=== PATIENT | male | born 1970 | race Caucasian/White ===

== ENCOUNTER 2018-12-13 00:48 | Inpatient (IN) | payer BC ==
[~2018-12-13] VITALS: Ht 177.8 cm; Wt 93.0 kg
[2018-12-13] VITALS (8 sets, daily range): BP systolic 109–154; BP diastolic 65–92
[2018-12-13] MEDS ORDERED: ASPIRIN-LOW81 MG ORAL (01:06)
[2018-12-13] MEDS ORDERED: CRESTOR10 M1 ORAL (01:06)
[2018-12-13] MEDS ORDERED: SYNTHROID200 MCG ORAL (01:06)
[2018-12-13] MEDS ORDERED: dilTIAZem HCl 25mg/5ml Inj IVP ONE ×2 (01:15→02:30)
--- NOTE | 2018-12-13 01:15 | Emergency Room Report ---
History of Present Illness General Chief Complaint: General Complaint Source: Patient Present Illness HPI Patient presents with complaints of palpitation sensation that started approximately 1030 this evening patient reports drinking a tall Cold glass of water soon after which he began feeling the palpitation sensation patient had very similar Event in September when he went to [facility] had fairly extensive cardiac work- up was found to have atrial fibrillation Patient was on metoprolol for about 1 month after that And since then has had a stress test and further evaluation and was taken off the medication Denies any chest pain he does feel the palpitation sensation denies any vomiting or diarrhea denies any other trauma denies any intake of any energy drinks Allergies: Coded Allergies: No Known Allergies (Unverified , 12/13/18) Patient History Past Medical History: see triage record Pertinent Family History: none Reviewed Nursing Documentation: PMH: Agreed; PSxH: Agreed Nursing Documentation-PMH Past Medical History: No History, Except For Hx Cardiac Problems: Yes - afib, hcl, hypothroidism Review of Systems All Other Systems: negative except mentioned in HPI Physical Exam Vital Signs Date Time Temp Pulse Resp B/P (MAP) Pulse Ox O2 Delivery O2 Flow Rate FiO2 12/13/18 00:53 98.1 107 18 138/91 (107) 94 Room Air Sp02 EP Interpretation: reviewed, normal General Appearance: well appearing, no apparent distress Head: normocephalic, atraumatic Eyes: bilateral eye PERRL, bilateral eye EOMI ENT: hearing grossly normal, normal pharynx, TMs + canals normal, uvula midline Neck: full range of motion, supple, no meningismus, no bony tend Respiratory: lungs clear, normal breath sounds, no rhonchi, no respiratory distress, no retraction, no accessory muscle use Cardiovascular #1: normal peripheral pulses, no edema, no gallop, no JVD, no murmur, tachycardia, irregularly irregular Gastrointestinal: normal bowel sounds, non tender, soft, no mass, no organomegaly, non-distended, no guarding, no hernia, no pulsatile mass, no rebound Genitourinary: no CVA tenderness Musculoskeletal: normal inspection Neurologic: oriented x3, responsive, skein winder III-XII nml as tested, motor strength/ tone normal, sensory intact Psychiatric: mood/affect normal Skin: normal color, no rash, warm/dry, palpation normal Lymphatic: normal inspection, no adenopathy Procedures Critical Care Time Critical Care Time 50 minutes for multiple re-evaluations initial critical presentation concerning findings with cardiac pathology concerning for cardiac arrhythmia and possible not including any procedural time Medical Decision Making Diagnostic Impression: Primary Impression: Atrial fibrillation with RVR ER Course Patient is a fairly complex patient with multiple differential to consideration including but not limited to cardiac cardiopulmonary and vascular emergencies Patient appears to have had fairly extensive testing recently for this nevertheless initially trialed on Cardizem Patient also placed on a drip heart rate did improve significantly however remains irregular Anticoagulation was also initiated Consideration and discussion regarding cardioversions may need to however given the patient's improving heart rate And question of previous atrial fibrillation this is deferred for further inpatient care Labs Test 12/13/18 01:15 12/13/18 01:55 White Blood Count 9.9 K/UL (4.8-10.8) Red Blood Count 5.55 M/UL (4.70-6.10) Hemoglobin 17.2 G/DL (14.2-18.0) Hematocrit 49.6 % (42.0-52.0) Mean Corpuscular Volume 89 FL (80-99) Mean Corpuscular Hemoglobin 31.0 PG (27.0-31.0) Mean Corpuscular Hemoglobin Concent 34.7 G/DL (32.0-36.0) Red Cell Distribution Width 11.1 % (11.6-14.8) Platelet Count 251 K/UL (150-450) Mean Platelet Volume 6.2 FL (6.5-10.1) Neutrophils (%) (Auto) 43.0 % (45.0-75.0) Lymphocytes (%) (Auto) 45.5 % (20.0-45.0) Monocytes (%) (Auto) 8.2 % (1.0-10.0) Eosinophils (%) (Auto) 2.0 % (0.0-3.0) Basophils (%) (Auto) 1.4 % (0.0-2.0) Prothrombin Time 9.6 SEC (9.30-11.50) Prothromb Time International Ratio 0.9 (0.9-1.1) Activated Partial Thromboplast Time 25 SEC (23-33) Sodium Level 148 MMOL/L (136-145) Potassium Level 4.0 MMOL/L (3.5-5.1) Chloride Level 107 MMOL/L (98-107) Carbon Dioxide Level 32 MMOL/L (21-32) Anion Gap 9 mmol/L (5-15) Blood Urea Nitrogen 17 mg/dL (7-18) Creatinine 1.1 MG/DL (0.55-1.30) Estimat Glomerular Filtration Rate > 60 mL/min (>60) Glucose Level 112 MG/DL (74-106) Calcium Level 9.6 MG/DL (8.5-10.1) Total Bilirubin 0.2 MG/DL (0.2-1.0) Aspartate Amino Transf (AST/SGOT) 26 U/L (15-37) Alanine Aminotransferase (ALT/SGPT) 63 U/L (12-78) Alkaline Phosphatase 75 U/L (46-116) Total Creatine Kinase 97 U/L (26-308) Creatine Kinase MB 1.3 NG/ML (0.0-3.6) Creatine Kinase MB Relative Index 1.3 Troponin I 0.000 ng/mL (0.000-0.056) Pro-B-Type Natriuretic Peptide 11 pg/mL (0-125) Total Protein 7.6 G/DL (6.4-8.2) Albumin 4.0 G/DL (3.4-5.0) Globulin 3.6 g/dL Albumin/Globulin Ratio 1.1 (1.0-2.7) Urine Opiates Screen Negative (NEGATIVE) Urine Barbiturates Screen Negative (NEGATIVE) Phencyclidine (PCP) Screen Negative (NEGATIVE) Urine Amphetamines Screen Negative (NEGATIVE) Urine Benzodiazepines Screen Negative (NEGATIVE) Urine Cocaine Screen Negative (NEGATIVE) Urine Marijuana (THC) Screen Negative (NEGATIVE) EKG Diagnostic Results Rate: tachycardiac Rhythm: other ST Segments: other - AFib RVR Rhythm Strip Diag. Results EP Interpretation: yes Rate: 80 Rhythm: no PVC's, no ectopy, other - Irregularly irregular Chest X-Ray Diagnostic Results Chest X-Ray Diagnostic Results : Chest X-Ray Ordered: Yes # of Views/Limited/Complete: 1 View Indication: Chest Pain EP Interpretation: Yes Interpretation: no consolidation, no effusion, no pneumothorax Impression: No acute disease - Nonspecific elevated left hemidiaphragm Electronically Signed by: Jessica Young DO Last Vital Signs Date Time Temp Pulse Resp B/P (MAP) Pulse Ox O2 Delivery O2 Flow Rate FiO2 12/13/18 00:53 98.1 107 18 138/91 (638) 94 Room Air Status: improved Disposition: ADMITTED INPATIENT Condition: Serious Jessica Young DO Dec 13, 2018 01:15
[2018-12-13 01:27] LABS: BASOPHILS % (AUTO) 1.4 % (0.0-2.0); HEMATOCRIT 49.6 % (42.0-52.0); HEMOGLOBIN 17.2 G/DL (14.2-18.0); LYMPHOCYTES % (AUTO) 45.5 % (20.0-45.0); MEAN CORPUSCULAR VOLUME 89 FL (80-99); MONOCYTES % (AUTO) 8.2 % (1.0-10.0); PLATELET COUNT 251 K/UL (150-450); RED BLOOD COUNT 5.55 M/UL (4.70-6.10); RED CELL DISTRIBUTION WIDTH 11.1 % (11.6-14.8); WHITE BLOOD COUNT 9.9 K/UL (4.8-10.8)
--- NOTE | 2018-12-13 01:36 | NUR ---
ED Nurse Note: Patient walked in to ER due to palpitation since 0. Patient's HR upon arrival 167, nonlabored breathing, O2 sat 98 % on RA. AAO x4, oter VSS at this time, will continue to monitor.
[2018-12-13 01:43] LABS: INR 0.9 (0.9-1.1)
[2018-12-13 01:52] LABS: ANION GAP 9 mmol/L (5-15); BLOOD UREA NITROGEN 17 mg/dL (7-18); CALCIUM 9.6 MG/DL (8.5-10.1); CARBON DIOXIDE 32 MMOL/L (21-32); CHLORIDE 107 MMOL/L (98-107); CREATININE 1.1 MG/DL (0.55-1.30); SODIUM 148 MMOL/L (136-145)
--- NOTE | 2018-12-13 01:58 | NUR ---
ED Nurse Note: Started Diltiazem drip at 5 mL/hr per Hector Castillo order.
[2018-12-13] MEDS ORDERED: Metoprolol Succinate XL 50mg tab ORAL ONE (02:00)
--- NOTE | 2018-12-13 02:00 | NUR ---
ED Nurse Note: Increased Diltiazem to 7mL/hr, per DR. Young order.
[2018-12-13] MEDS ORDERED: Metoprolol Tartrate 50mg tab ONE (02:03)
[2018-12-13 02:06] LABS: ALANINE AMINOTRANSFERASE 63 U/L (12-78); ALBUMIN/GLOBULIN RATIO 1.1 (1.0-2.7); ALKALINE PHOSPHATASE 75 U/L (46-116); ASPARTATE AMINO TRANSFERASE 26 U/L (15-37); BILIRUBIN,TOTAL 0.2 MG/DL (0.2-1.0); CKMB 1.3 NG/ML (0.0-3.6); CREATINE KINASE 97 U/L (26-308)
--- NOTE | 2018-12-13 02:12 | NUR ---
Metoprolol 50mg would not show in [facility] and was not able to scan, however, was able to override and administer.
--- NOTE | 2018-12-13 02:31 | Diagnostic Imaging Report ---
EXAM: XR Chest, 1 View CLINICAL HISTORY: CP TECHNIQUE: Frontal view of the chest. COMPARISON: No relevant prior studies available. FINDINGS: Lungs: No consolidation or mass. Pleural space: No acute findings Heart: No cardiomegaly. Mediastinum: Unremarkable. Bones/joints: No acute findings. IMPRESSION: No acute cardiopulmonary process.
--- NOTE | 2018-12-13 02:41 | NUR ---
ED Nurse Note: Resume Diltiazem drip at 10mL/hr per Hector CABALLERO order.
[2018-12-13] MEDS ORDERED: Enoxaparin 100mg Inj SUBQ ONE (03:00)
--- NOTE | 2018-12-13 03:30 | NUR ---
ED Nurse Note: Patient was admited to [facility] due to Afib. Patient was transfered up with Diltiazem drip at rate 10mL/hr. Patient's HR is 82. Patient was transfered via gurney by ACLS protocol, with all belongings.
--- NOTE | 2018-12-13 03:30 | NUR ---
NURSE NOTES: Patient arrived via gurney from the ED. Report received from [facility] Pool. Patient is able to walk into bed steadily. monitor worker in place, linens and gown was changed. Belongings accounted for at bedside. Patient states no distress or pain. On room air O2 saturating at 98%. Vital signs stable. Will initiate plan of care.
--- NOTE | 2018-12-13 04:03 | NUR ---
NURSE NOTES: Received admission orders from Dr. Esquivel.
--- NOTE | 2018-12-13 07:28 | NUR ---
NURSE NOTES: Received report from [facility] Ly. Pt. Patient is resting in bed, in stable condition. Alert and oriented x4. No sign of acute distress at this time. Cardizem drip is running at RX dose. Bed in low position, with two side rails up, brake engaged. Call light and bed side table within reach. Will continue to monitor.
--- NOTE | 2018-12-13 07:28 | NUR ---
HAND-OFF: Report given to LB Davenport.
[2018-12-13] MEDS ORDERED: Aspirin EC 81mg tab ORAL SCH (09:00)
--- NOTE | 2018-12-13 09:00 | NUR ---
NURSE NOTES: Called and paged Dr. Esquivel for asking about patient medication and Tyrone baron
--- NOTE | 2018-12-13 10:00 | NUR ---
NURSE NOTES: Paged Dr. Esquivel for the second time.
--- NOTE | 2018-12-13 11:31 | NUR ---
CASE MANAGEMENT: INITIAL REVIEW 48 YO M PRESENTED TO OUR ED FROM HOME CC: "[facility]" PMHx: A FIB. HYPOTHYROIDISM. HLD. SI:A FIB W/ RVR T 98.1 HR 107 RR 18 B/P 138/91 SATS 94% ON RA NA 148 GLU 112 IS: NS BOLUS X1 CARDIZEM IV X2 PATIENT ADMITTED TO TELE 12/13/2018 @ 0150 DCP: PATIENT TO BE DISCHARGED TO HOME ONCE MEDICALLY CLEARED. PLAN OF CARE: CARDIO EVAL Addendum: 12/13/18 at 1748 by Ling Lofton CM INTERQUAL MET
--- NOTE | 2018-12-13 11:43 | Cardiac Electrophysiology PN ---
Subjective Subjective [id number] Objective Last 24 Hour Vital Signs Date Time Temp Pulse Resp B/P (MAP) Pulse Ox O2 Delivery O2 Flow Rate FiO2 12/13/18 09:00 Room Air 12/13/18 08:00 98.3 50 20 109/65 (80) 96 12/13/18 08:00 43 12/13/18 03:50 87 12/13/18 03:30 Room Air 12/13/18 03:30 97.7 84 20 124/79 (94) 98 12/13/18 03:30 98.1 89 19 112/65 98 Room Air 12/13/18 02:42 98.1 89 19 112/65 98 Room Air 12/13/18 02:30 115 111/63 12/13/18 02:13 98.1 156 22 115/92 98 Room Air 12/13/18 02:11 106 117/92 12/13/18 01:58 98.1 167 22 135/83 98 Room Air 12/13/18 01:43 109 135/83 12/13/18 01:32 167 22 Room Air 12/13/18 01:32 98.1 167 22 133/83 98 Room Air 12/13/18 01:21 140 133/83 12/13/18 00:53 98.1 107 18 138/91 (107) 94 Room Air Intake and Output 12/12/18 12/13/18 19:00 07:00 # Voids 2 Laboratory Tests Test 12/13/18 01:15 12/13/18 01:55 White Blood Count 9.9 K/UL (4.8-10.8) Red Blood Count 5.55 M/UL (4.70-6.10) Hemoglobin 17.2 G/DL (14.2-18.0) Hematocrit 49.6 % (42.0-52.0) Mean Corpuscular Volume 89 FL (80-99) Mean Corpuscular Hemoglobin 31.0 PG (27.0-31.0) Mean Corpuscular Hemoglobin Concent 34.7 G/DL (32.0-36.0) Red Cell Distribution Width 11.1 % (11.6-14.8) L Platelet Count 251 K/UL (150-450) Mean Platelet Volume 6.2 FL (6.5-10.1) L Neutrophils (%) (Auto) 43.0 % (45.0-75.0) L Lymphocytes (%) (Auto) 45.5 % (20.0-45.0) H Monocytes (%) (Auto) 8.2 % (1.0-10.0) Eosinophils (%) (Auto) 2.0 % (0.0-3.0) Basophils (%) (Auto) 1.4 % (0.0-2.0) Prothrombin Time 9.6 SEC (9.30-11.50) Prothromb Time International Ratio 0.9 (0.9-1.1) Activated Partial Thromboplast Time 25 SEC (23-33) Sodium Level 148 MMOL/L (136-145) H Potassium Level 4.0 MMOL/L (3.5-5.1) Chloride Level 107 MMOL/L (98-107) Carbon Dioxide Level 32 MMOL/L (21-32) Anion Gap 9 mmol/L (5-15) Blood Urea Nitrogen 17 mg/dL (7-18) Creatinine 1.1 MG/DL (0.55-1.30) Estimat Glomerular Filtration Rate > 60 mL/min (>60) Glucose Level 112 MG/DL (74-106) H Calcium Level 9.6 MG/DL (8.5-10.1) Total Bilirubin 0.2 MG/DL (0.2-1.0) Aspartate Amino Transf (AST/SGOT) 26 U/L (15-37) Alanine Aminotransferase (ALT/SGPT) 63 U/L (12-78) Alkaline Phosphatase 75 U/L (46-116) Total Creatine Kinase 97 U/L (26-308) Creatine Kinase MB 1.3 NG/ML (0.0-3.6) Creatine Kinase MB Relative Index 1.3 Troponin I 0.000 ng/mL (0.000-0.056) Pro-B-Type Natriuretic Peptide 11 pg/mL (0-125) Total Protein 7.6 G/DL (6.4-8.2) Albumin 4.0 G/DL (3.4-5.0) Globulin 3.6 g/dL Albumin/Globulin Ratio 1.1 (1.0-2.7) Urine Opiates Screen Negative (NEGATIVE) Urine Barbiturates Screen Negative (NEGATIVE) Phencyclidine (PCP) Screen Negative (NEGATIVE) Urine Amphetamines Screen Negative (NEGATIVE) Urine Benzodiazepines Screen Negative (NEGATIVE) Urine Cocaine Screen Negative (NEGATIVE) Urine Marijuana (THC) Screen Negative (NEGATIVE) Shiraz Smith MD Dec 13, 2018 11:43
--- NOTE | 2018-12-13 17:42 | NUR ---
NURSE NOTES: Patient left the hospital against medical advise. Explained to the patient all the risks and consequences involved leaving the hospital and the benefits of continued treatment and hospitalization. Patient stated that he needs to take care of some business tonight and he has to go home. Heart monitor removed and returned to bus monitor. ID band removed and placed in shredder. IV removed. Patient left the hospital in stable condition.
--- NOTE | 2018-12-13 19:00 | Consultation ---
DATE OF CONSULTATION: 12/13/2018 CARDIOLOGY CONSULTATION CONSULTING PHYSICIAN: Shiraz Smith M.D. REFERRING PHYSICIAN: Manish Esquivel M.D. REASON FOR CONSULTATION: Atrial fibrillation with rapid ventricular response. HISTORY OF PRESENT ILLNESS: The patient is a very pleasant 48-year-old gentleman with history of newly diagnosed atrial fibrillation just 2 months ago on October 20 at [facility]. The patient spontaneously cardioverted to sinus rhythm. The patient initially was running on a treadmill and after exercise, when he was for the palpitation, he presented to the emergency room. The patient received IV Cardizem, but spontaneously cardioverted. The MATT and thyroid function test was within normal range. The patient was evaluated by Dr. King, who also had a stress test as an outpatient. It was reportedly normal. The metoprolol was subsequently discontinued. The patient was just kept on aspirin. The patient presented to the emergency room again with palpitation. Denied any chest pain or shortness of breath. No nausea or vomiting. Denies having any energy drinks or any trauma. The patient was started on Cardizem drip and was admitted and subsequently converted to sinus rhythm. REVIEW OF SYSTEMS: Negative other than what was mentioned in the history of present illness. PAST MEDICAL HISTORY: As mentioned above. FAMILY HISTORY: Noncontributory. SOCIAL HISTORY: He lives at home. Does not smoke or drink alcohol. LABORATORY AND DIAGNOSTIC STUDIES: His EKG showed atrial fibrillation with rapid ventricular response with heart rate of 148. His labs show white count of 9.9, hemoglobin 7.2, hematocrit of 49.7, and platelet count of 251,000. Sodium , potassium 4.0, BUN of 17, creatinine 1.0, glucose of 112. Troponin is negative. Urine toxicology screen is negative. INR is 0.9. ASSESSMENT AND PLAN: 1. Atrial fibrillation with rapid ventricular response with heart rate up to 150s. This is based on 12-lead EKG. This is a second documented episode, first one 2 months ago. I will discontinue Cardizem drip and start him on metoprolol 25 mg b.i.d. as well as flecainide 50 mg b.i.d. Hold off on anticoagulation as his CHADS score is zero. If he has recurrence of atrial fibrillation despite antiarrhythmics, the patient may need atrial fibrillation ablation. 2. Hypothyroidism, on Synthroid 100 micrograms daily. We will check a T4 and TSH on him to make sure he is not hyperthyroid. It is of note the patient's echocardiogram and stress test has been within normal range recently at [facility]. Thank you very much, Dr. Esquivel, for allowing me to participate in the care of this patient. Please do not hesitate to contact me for any questions regarding my evaluation. Shiraz Smith M.D. DR: Kb JOB#: [id number] CC:
--- NOTE | 2018-12-13 19:36 | Cardiology Report ---
APPROVED REPORT EKG Measurement Heart [id number] Atrial fibrillation with rapid ventricular response Abnormal ECG
--- NOTE | 2018-12-13 21:30 | History and Physical Report ---
DATE OF ADMISSION: 12/13/2018 HISTORY OF PRESENT ILLNESS: The patient is a 48-year-old white male came to the emergency room for having chest palpitation and was found to be in atrial fibrillation with a heart rate is about 170s. The patient denies any fever or chills. The patient claimed he had similar episode about a month ago, went to [facility], has all the tests done, but he was sent home, was placed on flecainide, aspirin, levothyroxine, and metoprolol. PAST MEDICAL HISTORY: Hypothyroidism. MEDICATIONS: See the list. ALLERGIES: NKA. FAMILY HISTORY: Noncontributory. SOCIAL HISTORY: Lives by himself. He denies any smoking and drinking. Denies any illegal drugs. REVIEW OF SYSTEMS: , feeling better. No chest pain. No palpitation. No nausea or vomiting. The patient has been walking by himself. PHYSICAL EXAMINATION: VITAL SIGNS: Blood pressure is 117/71, pulse 62, respirations 20s, temperature 98.2. HEENT: AT/NC. EOMI. PERRLA. NECK: Supple. No JVD. CHEST: Bilaterally clear. CARDIOVASCULAR: Regular rhythm. No gallop. No murmur. ABDOMEN: Soft. Positive bowel sounds. Nontender. EXTREMITIES: CCE. NEUROLOGICAL: No focal deficit. GENITOURINARY: Deferred. LABORATORY DATA: White counts are normal 10,000, hemoglobin 17, hematocrit 49, platelets are 251. Chemistry panel, sodium 148, potassium 4, BUN 17, creatinine 1.1, glucose 112. Troponin is 0.00. CK-MB was 1.3. Albumin is 4. ASSESSMENT AND PLAN: 1. Chest pain. 2. Atrial fibrillation with rapid ventricular rate. 3. Hypothyroidism. 4. History of atrial fibrillation. PLAN: 1. We will admit on telemetry bed. 2. The patient going to see straightener and aligner. 3. Continue metoprolol. 4. Waiting for 2D echo. 5. Discussed with the patient, the patient wanted to go home, waiting for his clearance. Endy Esquivel M.D. DR: Demi JOB#: [id number] CC:
[2018-12-14] MEDS ORDERED: Metoprolol Succinate XL 50mg tab ORAL SCH (09:00)
--- NOTE | 2018-12-17 12:14 | Discharge Summary ---
Discharge Summary Discharge Summary _ DATE OF ADMISSION: 12/13/2018 DATE OF DISCHARGE: 12/13/2018 Patient signed AGAINST MEDICAL ADVICE REASON FOR ADMISSION: 48 years old male with past medical history of newly diagnosed atrial fibrillation , 2 months ago at [facility], presented to emergency room with palpitations. He denied chest pain or shortness of breath. No nausea or vomiting. He denied drinking any energy drinks. He denied any injury or trauma. Upon evaluation in emergency department , EKG revealed atrial fibrillation with rapid ventricular response with heart rate of 148. Troponin was negative. Urine toxicology screen was negative. Chest x-ray revealed no acute cardiopulmonary pathology. Patient received IV Cardizem and started on the IV drip and spontaneously converted to sinus rhythm Patient recently, 2 months ago, was diagnosed with atrial fibrillation at [facility] . Patient initially was running on the treadmill and after exercise experienced palpitations. Subsequently he came to emergency room for evaluation and found to have atrial fibrillation with rapid rapid ventricular response. Patient received IV Cardizem . Patient spontaneously converted to sinus rhythm. At that time echocardiogram was done and was stable . Thyroid function test was within normal limits. Patient was evaluated by beater out leveling machine Dr. King. He also had a stress test as outpatient, which reported to be normal. Subsequently metoprolol which patient initially started on, was discontinued. Patient only was kept on aspirin. Patient admitted to telemetry floor for further management. CONSULTANTS: beater out leveling machine Dr. Lombardo [facility] COURSE: Patient admitted to telemetry floor. Cardiology seen and evaluated patient. Per cardiology, this was a second documented episode within two months. Cardizem drip was discontinued. Patient remained in sinus rhythm. Patient started on metoprolol 25 mg twice daily as well as flecainide 50 mg twice daily. Assembly Lead Person recommended hold off on anticoagulation as his CHADS score was 0. If patient will have another recurrence of atrial fibrillation despite antiarrhythmic, the patient may need atrial fibrillation ablation. Patient with history of hypothyroidism on Synthroid 100 mcg daily. TSH and T4 were ordered to make sure the patient was not hyperthyroid. Patient decided to leave AGAINST MEDICAL ADVICE. The risks and consequences of signing AGAINST MEDICAL ADVICE were discussed with patient in detail. Patient verbalized understanding, nevertheless signed AMA form and left. Patient stated he will follow-up with his regular beater out leveling machine as outpatient. FINAL DIAGNOSES: Atrial fibrillation with rapid ventricular response Hypothyroidism I have been assigned to dictate discharge summary for this account. I was not involved in the patient's management. Nishi Fish NP Dec 17, 2018 12:14
== END 2018-12-13 16:42 | disposition left against medical advice (07) | DRG 310 ==
LOC: EMR 01:04 → 2E 01:50 → EDBEDREQ 02:15
DX: I48.91 Unspecified atrial fibrillation (principal); E03.9 Hypothyroidism, unspecified
CPT/HCPCS: 36415; 71045; 80053; 80307; 82550; 82553; 83880; 84484; 85025; 85610; 85730; 93005; 96361; 96374; 96375; 99291